=== PATIENT | female | born 1960 | race Caucasian/White ===

== ENCOUNTER → 2024-06-24 | Outpatient (CLI) | payer MEDICARE, BC, SELFPAY ==
[2024-06-24 09:52] LABS: Collection Type, Urine Clean Catch; Squamous Epithelial Cell,Urine 0 /hpf (0-5)
[2024-06-24 10:17] LABS: Basophils # (Auto) 0.1 Thou/mm3 (0.0-0.2); Basophils % (Auto) 1 % (0-2.5); Eosinophils # (Auto) 0.1 Thou/mm3 (0.0-0.5); Eosinophils % (Auto) 3 % (0-10); Hematocrit 37.9 % (36.0-46.0); Immature Granulocytes % (Auto) 0 % (0-0); Immature Granulocytes Auto 0.02 Thou/mm3 (0.00-0.00); Lymphocytes # (Auto) 1.7 Thou/mm3 (1.0-4.8); Lymphocytes % (Auto) 31 % (10-50); Mean Corpuscular HGB Conc 34.3 g/dl (31.0-37.0); Mean Corpuscular Volume 84 fL (80-100); Monocytes # (Auto) 0.5 Thou/mm3 (0.0-0.8); Monocytes % (Auto) 9 % (0-12); Neutrophils % (Auto) 56 % (37-80); Nucleated Red Blood Cell % 0 /100 WBC (0); Platelet Count 300 Thou/mm3 (140-440); RDW Standard Deviation 37.9 fL (36.4-46.3); Red Blood Count 4.49 Miln/mm3 (4.00-5.20); White Blood Count 5.4 Thou/mm3 (3.6-11.0)
[2024-06-24 10:26] LABS: Bilirubin,Urine Negative (Negative); Blood,Urine Negative (Negative); Clarity,Urine Clear (Clear/Hazy); Color,Urine Yellow (Lt Yel-Yel); Glucose, Urine Trace (Negative); Ketones,Urine Negative (Negative); Leukocyte Esterase,Urine Negative (Negative); Nitrite,Urine Negative (Negative); PH,Urine 5.5 (5.0-7.0); Protein,Urine Trace (Neg - Trace); RBC,Urine 4 /hpf (0-3); Specific Gravity,Urine 1.023 (1.001-1.035); Urobilinogen,Urine Negative mg/dL (0.0-1.0); WBC,Urine 3 /hpf (0-5)
[2024-06-24 10:33] LABS: Glucose Estimated Average 171 mg/dL (80-131); Hemoglobin A1C 7.6 % Hgb (4.8-6.0)
[2024-06-24 10:34] LABS: Creatinine MALB Rnd Ur 196 mg/dL (30-125); Microalbumin Creat Ratio 7 mg/gCrea (<30); Microalbumin, Random Urine 13 mg/L (0-300)
[2024-06-24 10:50] LABS: Alanine Aminotransferase 27 U/L (10-49); Albumin, Serum 4.6 gm/dL (3.4-4.8); Alkaline Phosphatase 87 U/L (46-116); Anion Gap 12 (7-16); Aspartate Amino Transferase 20 U/L (0-34); BUN/Creatinine Ratio 19 Ratio (12-20); Bilirubin,Total 0.6 mg/dL (0.3-1.2); Blood Urea Nitrogen 13 mg/dL (9-23); Calcium 9.6 mg/dL (8.3-10.6); Calcium (Corrected) 9.6 mg/dL (8.5-10.1); Carbon Dioxide 27.1 mMol/L (20.0-31.0); Cardiac Risk Estimate 3.2 RATIO (3.7-5.6); Chloride 103 mMol/L (98-107); Cholesterol 200 mg/dL (132-200); Creatinine (Component) 0.7 mg/dL (0.6-1.3); Globulin 2.3 gm/dL (2.3-3.5); Glucose 159 mg/dL (74-106); HDL Cholesterol 62 mg/dL (40-60); LDL Cholesterol,Calculated 106 mg/dL (0-130); Osmolality,Calculated 286 (275-295); Potassium 3.8 mMol/L (3.4-5.1); Sodium 142 mMol/L (136-145); Total Protein 6.9 gm/dL (5.7-8.2); Triglycerides 162 mg/dL (30-150); eGFR > 60 See Note
== END | disposition home or self-care (01) ==
LOC: COPL 08:45
PROVIDERS: PCP Nurse Practitioner Family; Referring Provider Nurse Practitioner Family; Visit Provider Nurse Practitioner Family
DX: E11.21 Type 2 diabetes mellitus with diabetic nephropathy (principal); E78.5 Hyperlipidemia, unspecified; I10 Essential (primary) hypertension
CPT/HCPCS: 36415; 80053; 80061; 81001; 82043; 82570; 83036; 85025

== ENCOUNTER → 2024-09-28 | Outpatient (CLI) | payer MEDICARE, BC, SELFPAY ==
[2024-09-28 09:35] LABS: Basophils # (Auto) 0.1 Thou/mm3 (0.0-0.2); Basophils % (Auto) 1 % (0-2.5); Eosinophils # (Auto) 0.1 Thou/mm3 (0.0-0.5); Eosinophils % (Auto) 3 % (0-10); Hematocrit 37.6 % (36.0-46.0); Hemoglobin 12.5 g/dL (12.0-16.0); Immature Granulocytes % (Auto) 0 % (0-0); Immature Granulocytes Auto 0.01 Thou/mm3 (0.00-0.00); Lymphocytes # (Auto) 1.6 Thou/mm3 (1.0-4.8); Lymphocytes % (Auto) 28 % (10-50); Mean Corpuscular HGB Conc 33.2 g/dl (31.0-37.0); Mean Corpuscular Hemoglobin 28.2 pg (25.0-35.0); Mean Corpuscular Volume 85 fL (80-100); Monocytes # (Auto) 0.4 Thou/mm3 (0.0-0.8); Monocytes % (Auto) 7 % (0-12); Neutrophils # (Auto) 3.5 Thou/mm3 (1.8-7.7); Neutrophils % (Auto) 61 % (37-80); Nucleated Red Blood Cell % 0 /100 WBC (0); Platelet Count 252 Thou/mm3 (140-440); RDW Standard Deviation 38.7 fL (36.4-46.3); Red Blood Count 4.43 Miln/mm3 (4.00-5.20); White Blood Count 5.7 Thou/mm3 (3.6-11.0)
[2024-09-28 09:49] LABS: Alanine Aminotransferase 23 U/L (10-49); Albumin, Serum 4.1 gm/dL (3.4-4.8); Albumin/Globulin Ratio 1.8 (1.2-2.2); Alkaline Phosphatase 75 U/L (46-116); Anion Gap 9 (7-16); Aspartate Amino Transferase 17 U/L (0-34); BUN/Creatinine Ratio 16 Ratio (12-20); Bilirubin,Total 0.7 mg/dL (0.3-1.2); Blood Urea Nitrogen 11 mg/dL (9-23); Calcium 8.8 mg/dL (8.3-10.6); Calcium (Corrected) 8.8 mg/dL (8.5-10.1); Chloride 108 mMol/L (98-107); Creatinine (Component) 0.7 mg/dL (0.6-1.3); Globulin 2.3 gm/dL (2.3-3.5); Glucose 169 mg/dL (74-106); Osmolality,Calculated 288 (275-295); Potassium 3.6 mMol/L (3.4-5.1); Sodium 143 mMol/L (136-145); Total Protein 6.4 gm/dL (5.7-8.2); eGFR > 60 See Note
[2024-09-28 10:12] LABS: Glucose Estimated Average 197 mg/dL (80-131); Hemoglobin A1C 8.5 % Hgb (4.8-6.0)
== END | disposition home or self-care (01) ==
LOC: COPL 08:19
PROVIDERS: PCP Family Medicine; Referring Provider Nurse Practitioner Family; Visit Provider Nurse Practitioner Family
DX: E11.21 Type 2 diabetes mellitus with diabetic nephropathy (principal)
CPT/HCPCS: 36415; 80053; 83036; 85025

== ENCOUNTER → 2024-10-05 | Outpatient (CLI) | payer MEDICARE, BC, SELFPAY ==
[2024-10-05 13:01] LABS: Hepatitis C Antibody Non Reactive (Non React)
== END | disposition home or self-care (01) ==
LOC: COPL 10:52
PROVIDERS: PCP Family Medicine; Referring Provider Nurse Practitioner Family; Visit Provider Nurse Practitioner Family
DX: Z11.59 Encounter for screening for other viral diseases (principal)
CPT/HCPCS: 36415; 86803

== ENCOUNTER → 2024-12-25 | Outpatient (CLI) | payer MEDICARE, BC, SELFPAY ==
[2024-12-25 09:55] LABS: Basophils # (Auto) 0.0 Thou/mm3 (0.0-0.2); Basophils % (Auto) 1 % (0-2.5); Eosinophils # (Auto) 0.1 Thou/mm3 (0.0-0.5); Eosinophils % (Auto) 3 % (0-10); Hematocrit 37.3 % (36.0-46.0); Hemoglobin 12.6 g/dL (12.0-16.0); Immature Granulocytes Auto 0.01 Thou/mm3 (0.00-0.00); Lymphocytes # (Auto) 1.5 Thou/mm3 (1.0-4.8); Lymphocytes % (Auto) 29 % (10-50); Mean Corpuscular HGB Conc 33.8 g/dl (31.0-37.0); Mean Corpuscular Hemoglobin 29.4 pg (25.0-35.0); Mean Corpuscular Volume 87 fL (80-100); Monocytes # (Auto) 0.5 Thou/mm3 (0.0-0.8); Monocytes % (Auto) 9 % (0-12); Neutrophils # (Auto) 3.0 Thou/mm3 (1.8-7.7); Neutrophils % (Auto) 59 % (37-80); Nucleated Red Blood Cell # 0.00 Thou/mm3 (0.00-0.00); Nucleated Red Blood Cell % 0 /100 WBC (0); Platelet Count 273 Thou/mm3 (140-440); RDW Standard Deviation 40.6 fL (36.4-46.3); Red Blood Count 4.28 Miln/mm3 (4.00-5.20); White Blood Count 5.2 Thou/mm3 (3.6-11.0)
[2024-12-25 10:09] LABS: Alanine Aminotransferase 26 U/L (10-49); Albumin, Serum 4.3 gm/dL (3.4-4.8); Albumin/Globulin Ratio 1.8 (1.2-2.2); Alkaline Phosphatase 73 U/L (46-116); Anion Gap 9 (7-16); Aspartate Amino Transferase 21 U/L (0-34); BUN/Creatinine Ratio 15 Ratio (12-20); Bilirubin,Total 0.6 mg/dL (0.3-1.2); Blood Urea Nitrogen 12 mg/dL (9-23); Calcium 9.0 mg/dL (8.3-10.6); Calcium (Corrected) 9.0 mg/dL (8.5-10.1); Carbon Dioxide 26.7 mMol/L (20.0-31.0); Cardiac Risk Estimate 3.3 RATIO (3.7-5.6); Chloride 109 mMol/L (98-107); Cholesterol 169 mg/dL (132-200); Creatinine (Component) 0.8 mg/dL (0.6-1.3); Free T4 (Free Thyroxine) 1.01 ng/dL (0.89-1.76); Globulin 2.4 gm/dL (2.3-3.5); Glucose 149 mg/dL (74-106); HDL Cholesterol 51 mg/dL (40-60); LDL Cholesterol,Calculated 90 mg/dL (0-130); Osmolality,Calculated 291 (275-295); Potassium 3.8 mMol/L (3.4-5.1); Sodium 145 mMol/L (136-145); Thyroid Stimulating Hormone 1.60 uIU/mL (0.55-4.78); Total Protein 6.7 gm/dL (5.7-8.2); Triglycerides 138 mg/dL (30-150); eGFR > 60 See Note
[2024-12-25 10:17] LABS: Glucose Estimated Average 163 mg/dL (80-131); Hemoglobin A1C 7.3 % Hgb (4.8-6.0)
[2025-01-04 07:40] LABS: Direct LDL* 102 mg/dL (<100)
== END | disposition home or self-care (01) ==
LOC: COPL 08:45
PROVIDERS: PCP Nurse Practitioner Family; Referring Provider Nurse Practitioner Family; Visit Provider Nurse Practitioner Family
DX: E11.21 Type 2 diabetes mellitus with diabetic nephropathy (principal); E78.5 Hyperlipidemia, unspecified; Z13.29 Encounter for screening for other suspected endocrine disorder
CPT/HCPCS: 36415; 80053; 80061; 83036; 83721; 84439; 84443; 85025

== ENCOUNTER → 2025-03-23 | Outpatient (CLI) | payer MEDICARE, BC, SELFPAY ==
[2025-03-23 11:04] LABS: Basophils # (Auto) 0.1 Thou/mm3 (0.0-0.2); Basophils % (Auto) 1 % (0-2.5); Eosinophils # (Auto) 0.1 Thou/mm3 (0.0-0.5); Eosinophils % (Auto) 2 % (0-10); Hematocrit 36.8 % (36.0-46.0); Hemoglobin 12.3 g/dL (12.0-16.0); Immature Granulocytes Auto 0.02 Thou/mm3 (0.00-0.00); Lymphocytes # (Auto) 1.9 Thou/mm3 (1.0-4.8); Lymphocytes % (Auto) 30 % (10-50); Mean Corpuscular HGB Conc 33.4 g/dl (31.0-37.0); Mean Corpuscular Hemoglobin 28.5 pg (25.0-35.0); Mean Corpuscular Volume 85 fL (80-100); Monocytes # (Auto) 0.5 Thou/mm3 (0.0-0.8); Monocytes % (Auto) 8 % (0-12); Neutrophils # (Auto) 3.7 Thou/mm3 (1.8-7.7); Neutrophils % (Auto) 59 % (37-80); Nucleated Red Blood Cell # 0.00 Thou/mm3 (0.00-0.00); Nucleated Red Blood Cell % 0 /100 WBC (0); Platelet Count 278 Thou/mm3 (140-440); RDW Standard Deviation 40.1 fL (36.4-46.3); Red Blood Count 4.31 Miln/mm3 (4.00-5.20); White Blood Count 6.3 Thou/mm3 (3.6-11.0)
[2025-03-23 11:16] LABS: Alanine Aminotransferase 26 U/L (10-49); Albumin, Serum 4.4 gm/dL (3.4-4.8); Albumin/Globulin Ratio 1.9 (1.2-2.2); Alkaline Phosphatase 71 U/L (46-116); Anion Gap 9 (7-16); Aspartate Amino Transferase 18 U/L (0-34); BUN/Creatinine Ratio 15 Ratio (12-20); Bilirubin,Total 0.6 mg/dL (0.3-1.2); Blood Urea Nitrogen 12 mg/dL (9-23); Calcium 9.2 mg/dL (8.3-10.6); Calcium (Corrected) 9.2 mg/dL (8.5-10.1); Carbon Dioxide 28.3 mMol/L (20.0-31.0); Cardiac Risk Estimate 2.7 RATIO (3.7-5.6); Chloride 108 mMol/L (98-107); Cholesterol 159 mg/dL (132-200); Creatinine (Component) 0.8 mg/dL (0.6-1.3); Globulin 2.3 gm/dL (2.3-3.5); Glucose 138 mg/dL (74-106); HDL Cholesterol 60 mg/dL (40-60); LDL Cholesterol,Calculated 77 mg/dL (0-130); Osmolality,Calculated 290 (275-295); Potassium 3.8 mMol/L (3.4-5.1); Sodium 145 mMol/L (136-145); Total Protein 6.7 gm/dL (5.7-8.2); Triglycerides 109 mg/dL (30-150); eGFR > 60 See Note
[2025-03-23 11:21] LABS: Glucose Estimated Average 166 mg/dL (80-131); Hemoglobin A1C 7.4 % Hgb (4.8-6.0)
[2025-03-26 07:06] LABS: Direct LDL* 88 mg/dL (<100)
== END | disposition home or self-care (01) ==
LOC: COPL 09:57
PROVIDERS: PCP Nurse Practitioner Family; Referring Provider Nurse Practitioner Family; Visit Provider Nurse Practitioner Family
DX: I10 Essential (primary) hypertension (principal); E78.5 Hyperlipidemia, unspecified; E11.21 Type 2 diabetes mellitus with diabetic nephropathy
CPT/HCPCS: 36415; 80053; 80061; 83036; 83721; 85025

== ENCOUNTER → 2025-06-07 | Outpatient (CLI) | payer MEDICARE, BC, SELFPAY ==
[2025-06-07 10:23] LABS: Basophils # (Auto) 0.1 Thou/mm3 (0.0-0.2); Basophils % (Auto) 1 % (0-2.5); Eosinophils # (Auto) 0.1 Thou/mm3 (0.0-0.5); Eosinophils % (Auto) 2 % (0-10); Hematocrit 38.7 % (36.0-46.0); Hemoglobin 12.8 g/dL (12.0-16.0); Immature Granulocytes Auto 0.02 Thou/mm3 (0.00-0.00); Lymphocytes # (Auto) 1.9 Thou/mm3 (1.0-4.8); Lymphocytes % (Auto) 24 % (10-50); Mean Corpuscular HGB Conc 33.1 g/dl (31.0-37.0); Mean Corpuscular Hemoglobin 29.2 pg (25.0-35.0); Mean Corpuscular Volume 88 fL (80-100); Monocytes # (Auto) 0.6 Thou/mm3 (0.0-0.8); Monocytes % (Auto) 8 % (0-12); Neutrophils # (Auto) 5.1 Thou/mm3 (1.8-7.7); Neutrophils % (Auto) 65 % (37-80); Nucleated Red Blood Cell # 0.00 Thou/mm3 (0.00-0.00); Nucleated Red Blood Cell % 0 /100 WBC (0); Platelet Count 299 Thou/mm3 (140-440); RDW Standard Deviation 41.2 fL (36.4-46.3); Red Blood Count 4.39 Miln/mm3 (4.00-5.20); White Blood Count 7.8 Thou/mm3 (3.6-11.0)
[2025-06-07 11:37] LABS: Alanine Aminotransferase 22 U/L (10-49); Albumin, Serum 4.5 gm/dL (3.4-4.8); Albumin/Globulin Ratio 1.7 (1.2-2.2); Alkaline Phosphatase 74 U/L (46-116); Anion Gap 12 (7-16); Aspartate Amino Transferase 22 U/L (0-34); BUN/Creatinine Ratio 16 Ratio (12-20); Bilirubin,Total 0.5 mg/dL (0.3-1.2); Blood Urea Nitrogen 13 mg/dL (9-23); Calcium 9.2 mg/dL (8.3-10.6); Calcium (Corrected) 9.2 mg/dL (8.5-10.1); Carbon Dioxide 26.1 mMol/L (20.0-31.0); Cardiac Risk Estimate 2.8 RATIO (3.7-5.6); Chloride 109 mMol/L (98-107); Cholesterol 173 mg/dL (132-200); Creatinine (Component) 0.8 mg/dL (0.6-1.3); Globulin 2.6 gm/dL (2.3-3.5); Glucose 116 mg/dL (74-106); HDL Cholesterol 62 mg/dL (40-60); LDL Cholesterol,Calculated 90 mg/dL (0-130); Osmolality,Calculated 293 (275-295); Potassium 4.0 mMol/L (3.4-5.1); Sodium 147 mMol/L (136-145); Total Protein 7.1 gm/dL (5.7-8.2); Triglycerides 105 mg/dL (30-150); eGFR > 60 See Note
[2025-06-07 12:53] LABS: Glucose Estimated Average 154 mg/dL (80-131); Hemoglobin A1C 7.0 % Hgb (4.8-6.0)
[2025-06-14 07:08] LABS: Direct LDL* 89 mg/dL (<100)
== END | disposition home or self-care (01) ==
LOC: COPL 09:09
PROVIDERS: PCP Nurse Practitioner Family; Referring Provider Nurse Practitioner Family; Visit Provider Nurse Practitioner Family
DX: E11.21 Type 2 diabetes mellitus with diabetic nephropathy (principal); E78.5 Hyperlipidemia, unspecified
CPT/HCPCS: 36415; 80053; 80061; 83036; 83721; 85025